=== PATIENT | male | born 1940 | race Caucasian/White ===

== ENCOUNTER 2019-01-02 01:57 | Inpatient (IN) | payer MEDICARE, MEDICAID ==
[~2019-01-02] VITALS: Ht 185.4 cm; Wt 117.3 kg
[~2019-01-02 01:57] MED LIST: BENA20TA54 PO; DOCU-193 PO; FEBU40TA PO; FLAX100029 PO; FURO40TA6 PO; LORA-247 PO; LOVA20TA2 PO; METF500T17 PO; MORP60CA17 PO; POTA10TA11 PO; TAMS0.4C2 PO; [UNRECOGNIZED DRUG - CODE] PO
--- NOTE | 2019-01-02 02:15 | NUR ---
[place] [facility], TRANSFER FROM [facility] FOR ELEVATED TROPS. PT WAS TAKEN TO [facility] FOR AN OVERDOSE ON MORPHINE. WHEN HE WAS PICKED UP HIS GCS WAS 3. NARCAN GIVEN AND PT WAS GCS 15. PT TAKEN TO [facility] AND TROPS FOUND TO BE ELEVATED. PT STATES THAT HE HAS NEVER ATTEMPTED SUICIDE IN THE PAST, THIS IS HIS FIRST ATTEMPT. PT STATES HE IS NOT LONGER FEELING SUICIDAL, BUT PT HAS A VERY DEPRESSED AFFECT. PT IN SECURED ROOM, FREQUENT CHECKS BY THIS RN.
[2019-01-02 02:24] LABS: MEAN CORPUSCULAR HEMOGLOBIN 31.9 pg (27.5-34.5); MEAN CORPUSCULAR HGB CONC 32.8 g/dL (33.2-36.2); MEAN CORPUSCULAR VOLUME 97.2 fL (81-97); MEAN PLATELET VOLUME 7.6 fL (7.4-10.4); PLATELET COUNT 313 x10^3/uL (130-400); RED BLOOD COUNT 4.47 x10^6/uL (4.38-5.82); RED CELL DISTRIBUTION WIDTH 14.1 % (9.4-14.8)
[2019-01-02] MEDS ORDERED: NALOXONE 0.4 MG/ML, 1ML IVPush ONE (02:30)
[2019-01-02] MEDS ORDERED: FAMOTIDINE 20 MG/2 ML IVPush ONE (02:30)
[2019-01-02] MEDS ORDERED: methylPREDNISolone SOD SUCC 125 MG/2 ML IVPush ONE ×2 (02:30→10:00)
[2019-01-02 02:38] LABS: ALANINE AMINOTRANSFERASE 30 U/L (12-78); ALBUMIN 3.3 g/dL (3.4-5.0); ANION GAP 10 mmol/L (5-15); CALCIUM 7.3 mg/dL (8.5-10.1); CHLORIDE 108 mmol/L (98-107); CREATININE 2.28 mg/dL (0.7-1.3); SALICYLATE LEVEL < 1.7 mg/dL (2.8-20.0)
[2019-01-02 02:43] LABS: ALKALINE PHOSPHATASE 72 U/L (45-117); BILIRUBIN,TOTAL 0.5 mg/dL (0.2-1.0); TOTAL PROTEIN 7.3 g/dL (6.4-8.2)
[2019-01-02 02:45] LABS: TROPONIN I 0.758 ng/mL (0.000-0.045)
[2019-01-02 02:52] LABS: BASOPHILS % (AUTO) 0 % (0-1); EOSINOPHILS # (AUTO) 0.13 x10^3/uL (0-0.4); EOSINOPHILS % (AUTO) 1 % (1-7); LYMPHOCYTES # (AUTO) 0.56 x10^3/uL (1-3.4); LYMPHOCYTES % (AUTO) 4 % (22-44); MD SCAN; MONOCYTES # (AUTO) 0.05 x10^3/uL (0.2-0.8); MONOCYTES % (AUTO) 0 % (2-9); NEUTROPHILS % (AUTO) 95 % (42-75)
--- NOTE | 2019-01-02 02:57 | NUR ---
PT ATTACHED TO ALL MONITORS. PROVIDED URINAL FOR URINE SAMPLE.
[2019-01-02] MEDS ORDERED: PLEASE ENTER HEIGHT AND WEIGHT MC SCH (03:00)
[2019-01-02] MEDS ORDERED: POTA20TA37 PO (03:10)
[2019-01-02] MEDS ORDERED: METO25TA35 PO (03:10)
[2019-01-02] MEDS ORDERED: FURO80TA77 PO (03:10)
--- NOTE | 2019-01-02 03:36 | NUR ---
REPORT GIVEN TO JIM GILMORE
[2019-01-02] MEDS ORDERED: ONDANSETRON 2MG/ML, 2ML IVPush PRN (04:00)
[2019-01-02] MEDS ORDERED: NALOXONE 0.4 MG/ML, 1ML IVPush PRN (04:30)
[2019-01-02] MEDS ORDERED: SODIUM CHLORIDE 0.9% 1,000 ML IV SCH (04:30)
[2019-01-02 04:44] LABS: HEMOGLOBIN A1C 6.1 % (4.2-6.3)
[2019-01-02] MEDS: INSULIN LISPRO 100 UNITS/ML, PEN SQ-INSULIN SCH ×4 (08:08→21:14)
[2019-01-02 08:59] VITALS: BP 111/50
[2019-01-02] MEDS: LORATADINE 10 MG TABLET PO SCH (09:50)
[2019-01-02 11:27] LABS: TROPONIN I 0.934 ng/mL (0.000-0.045)
[2019-01-02 12:57] VITALS: BP 115/62
[2019-01-02] MEDS: SODIUM CHLORIDE 0.9% 1,000 ML IV SCH ×2 (13:07→21:55)
[2019-01-02 13:13] VITALS: BP 109/64
[2019-01-02 16:26] LABS: TROPONIN I 0.844 ng/mL (0.000-0.045)
[2019-01-02 19:18] VITALS: BP 127/62
[2019-01-02 19:42] LABS: MICROSCOPIC AUTO
[2019-01-02 19:43] LABS: CULTURE INDICATED? NO
[2019-01-02 19:54] LABS: AMPHETAMINE SCREEN, URINE Negative (Negative); BARBITURATE SCREEN, URINE Negative (Negative); BENZODIAZEPINE SCREEN, URINE Negative (Negative); CANNABINOID SCREEN, URINE Negative (Negative); COCAINE SCREEN, URINE Negative (Negative); METHADONE SCREEN, URINE Negative (Negative); OPIATE SCREEN, URINE Positive (Negative)
[2019-01-03 01:45] VITALS: BP 116/53
[2019-01-03 05:27] LABS: MEAN CORPUSCULAR HEMOGLOBIN 32.2 pg (27.5-34.5); MEAN CORPUSCULAR HGB CONC 32.6 g/dL (33.2-36.2); MEAN CORPUSCULAR VOLUME 98.7 fL (81-97); MEAN PLATELET VOLUME 7.6 fL (7.4-10.4); PLATELET COUNT 316 x10^3/uL (130-400); RED BLOOD COUNT 3.85 x10^6/uL (4.38-5.82); RED CELL DISTRIBUTION WIDTH 14.4 % (9.4-14.8)
[2019-01-03 05:30] LABS: ANION GAP 10 mmol/L (5-15); CALCIUM 7.7 mg/dL (8.5-10.1); CHLORIDE 106 mmol/L (98-107)
[2019-01-03 06:01] LABS: BASOPHILS # (AUTO) 0.03 x10^3/uL (0-0.1); BASOPHILS % (AUTO) 0 % (0-1); EOSINOPHILS # (AUTO) 0.17 x10^3/uL (0-0.4); EOSINOPHILS % (AUTO) 1 % (1-7); LYMPHOCYTES # (AUTO) 0.86 x10^3/uL (1-3.4); LYMPHOCYTES % (AUTO) 5 % (22-44); MD SCAN; MONOCYTES # (AUTO) 0.65 x10^3/uL (0.2-0.8); MONOCYTES % (AUTO) 3 % (2-9); NEUTROPHILS # (AUTO) 17.57 x10^3/uL (1.8-6.8); NEUTROPHILS % (AUTO) 91 % (42-75)
[2019-01-03 06:35] VITALS: BP 126/66
[2019-01-03] MEDS: INSULIN LISPRO 100 UNITS/ML, PEN SQ-INSULIN SCH ×4 (07:00→20:52)
[2019-01-03] MEDS: SODIUM CHLORIDE 0.9% 1,000 ML IV SCH ×2 (08:24→19:00)
[2019-01-03] MEDS: LORATADINE 10 MG TABLET PO SCH (08:24)
[2019-01-03 15:07] VITALS: BP 126/65
[2019-01-03 18:46] VITALS: BP 118/56
[2019-01-03 22:27] LABS: SODIUM,URINE RANDOM < 5 mmol/L
[2019-01-04 01:35] VITALS: BP 144/67
[2019-01-04] MEDS ORDERED: prednisOLONE 15 MG/5 ML ORAL SOLN PO ONE (03:00)
[2019-01-04] MEDS: SODIUM CHLORIDE 0.9% 1,000 ML IV SCH ×2 (04:34→15:27)
[2019-01-04 06:15] LABS: BASOPHILS # (AUTO) 0.02 x10^3/uL (0-0.1); BASOPHILS % (AUTO) 0 % (0-1); EOSINOPHILS # (AUTO) 0.02 x10^3/uL (0-0.4); EOSINOPHILS % (AUTO) 0 % (1-7); LYMPHOCYTES # (AUTO) 1.01 x10^3/uL (1-3.4); LYMPHOCYTES % (AUTO) 10 % (22-44); MD NO; MEAN CORPUSCULAR HEMOGLOBIN 31.9 pg (27.5-34.5); MEAN CORPUSCULAR HGB CONC 32.9 g/dL (33.2-36.2); MEAN CORPUSCULAR VOLUME 97.1 fL (81-97); MEAN PLATELET VOLUME 7.3 fL (7.4-10.4); MONOCYTES # (AUTO) 0.07 x10^3/uL (0.2-0.8); MONOCYTES % (AUTO) 1 % (2-9); NEUTROPHILS # (AUTO) 8.93 x10^3/uL (1.8-6.8); NEUTROPHILS % (AUTO) 89 % (42-75); PLATELET COUNT 290 x10^3/uL (130-400); RED BLOOD COUNT 3.76 x10^6/uL (4.38-5.82); RED CELL DISTRIBUTION WIDTH 14.1 % (9.4-14.8)
[2019-01-04 06:28] LABS: ANION GAP 9 mmol/L (5-15); CALCIUM 7.8 mg/dL (8.5-10.1); CHLORIDE 107 mmol/L (98-107); CREATININE 1.83 mg/dL (0.7-1.3)
[2019-01-04] MEDS: INSULIN LISPRO 100 UNITS/ML, PEN SQ-INSULIN SCH ×4 (07:00→20:39)
[2019-01-04 09:54] VITALS: BP 158/69
[2019-01-04] MEDS: LORATADINE 10 MG TABLET PO SCH (11:00)
[2019-01-04 14:01] VITALS: BP 140/65
[2019-01-04 19:33] VITALS: BP 116/59
[2019-01-05 00:26] VITALS: BP 126/60
[2019-01-05] MEDS: SODIUM CHLORIDE 0.9% 1,000 ML IV SCH ×2 (03:06→13:23)
[2019-01-05] MEDS: INSULIN LISPRO 100 UNITS/ML, PEN SQ-INSULIN SCH ×3 (07:00→16:00)
[2019-01-05] MEDS: LORATADINE 10 MG TABLET PO SCH (08:02)
[2019-01-05 09:04] VITALS: BP 165/71
[2019-01-05 13:20] VITALS: BP 176/72
[2019-01-05] MEDS ORDERED: hydrALAzine 20 MG/ML, 1ML IV PRN (18:00)
[2019-01-05] MEDS ORDERED: AMLODIPINE 5 MG TABLET PO SCH (18:00)
[2019-01-05 20:30] VITALS: BP 189/77
[2019-01-06 00:54] VITALS: BP 178/73
[2019-01-06 08:33] VITALS: BP 173/80
[2019-01-06] MEDS ORDERED: AMLODIPINE 10 MG TAB ONE (09:00)
[2019-01-06] MEDS ORDERED: AMLODIPINE 10 MG TAB PO SCH (09:00)
[2019-01-06] MEDS ORDERED: DIPHENHYDRAMINE 25 MG CAPSULE ONE (09:07)
[2019-01-06] MEDS: LORATADINE 10 MG TABLET PO SCH (09:09)
[2019-01-06 09:10] LABS: BASOPHILS # (AUTO) 0.02 x10^3/uL (0-0.1); BASOPHILS % (AUTO) 0 % (0-1); EOSINOPHILS # (AUTO) 0.27 x10^3/uL (0-0.4); EOSINOPHILS % (AUTO) 3 % (1-7); LYMPHOCYTES % (AUTO) 17 % (22-44); MD NO; MEAN CORPUSCULAR HEMOGLOBIN 31.3 pg (27.5-34.5); MEAN CORPUSCULAR HGB CONC 32.7 g/dL (33.2-36.2); MEAN CORPUSCULAR VOLUME 95.7 fL (81-97); MEAN PLATELET VOLUME 7.4 fL (7.4-10.4); MONOCYTES # (AUTO) 0.16 x10^3/uL (0.2-0.8); MONOCYTES % (AUTO) 2 % (2-9); NEUTROPHILS # (AUTO) 8.41 x10^3/uL (1.8-6.8); NEUTROPHILS % (AUTO) 79 % (42-75); PLATELET COUNT 281 x10^3/uL (130-400); RED BLOOD COUNT 3.99 x10^6/uL (4.38-5.82); RED CELL DISTRIBUTION WIDTH 14.2 % (9.4-14.8)
[2019-01-06 09:17] LABS: ANION GAP 9 mmol/L (5-15); CALCIUM 8.1 mg/dL (8.5-10.1); CHLORIDE 116 mmol/L (98-107); CREATININE 1.44 mg/dL (0.7-1.3)
[2019-01-06] MEDS ORDERED: DIPHENHYDRAMINE 25 MG CAPSULE PO PRN (09:30)
[2019-01-06] MEDS ORDERED: AMLO10TA8 PO (10:56)
[2019-01-06] MEDS ORDERED: BISACODYL 10 MG SUPP ONE (13:02)
[2019-01-06] MEDS ORDERED: BISACODYL 10 MG SUPP PR PRN (13:30)
[2019-01-09] MEDS ORDERED: LIDO700A20 TD (17:39)
[2019-01-09] MEDS ORDERED: SERT50TA28 PO (17:39)
== END 2019-01-06 14:23 | DRG 917 ==
LOC: ED 02:26 → EDIP 03:10 → 4WST 03:53
PROVIDERS: ADMIT Internal Medicine; ATTEND Family Medicine
DX: T40.2X2A Poisoning by other opioids, intentional self-harm, initial encounter (principal); I21.4 Non-ST elevation (NSTEMI) myocardial infarction; J96.01 Acute respiratory failure with hypoxia; E66.2 Morbid (severe) obesity with alveolar hypoventilation; F33.2 Major depressive disorder, recurrent severe without psychotic features; I50.32 Chronic diastolic (congestive) heart failure; N17.9 Acute kidney failure, unspecified; E11.9 Type 2 diabetes mellitus without complications; Z68.34 Body mass index [BMI] 34.0-34.9, adult; G89.29 Other chronic pain; H91.90 Unspecified hearing loss, unspecified ear; I11.0 Hypertensive heart disease with heart failure; L50.9 Urticaria, unspecified; M54.9 Dorsalgia, unspecified; N40.1 Benign prostatic hyperplasia with lower urinary tract symptoms; R33.8 Other retention of urine; R63.3 Feeding difficulties; Z79.84 Long term (current) use of oral hypoglycemic drugs; Z79.899 Other long term (current) drug therapy; Z85.51 Personal history of malignant neoplasm of bladder; Z86.73 Personal history of transient ischemic attack (TIA), and cerebral infarction without residual deficits; Z88.5 Allergy status to narcotic agent; Z90.10 Acquired absence of unspecified breast and nipple; Z88.1 Allergy status to other antibiotic agents; Z88.0 Allergy status to penicillin; Z88.8 Allergy status to other drugs, medicaments and biological substances; Y92.038 Other place in apartment as the place of occurrence of the external cause
CPT/HCPCS: 36415; 71045; 76770; 80048; 80053; 80061; 80307; 81001; 82550; 82570; 82962; 83036; 84145; 84300; 84484; 85025; 93005; 93306; 99285; G0378; 92523-GN; J1815; J2930; J7030; Q0163

== ENCOUNTER → 2019-02-14 | Outpatient (CLI) | payer MEDICARE, MEDICAID ==
[~2019-02-14] MED LIST changes: +AMLO10TA8 PO; +FURO80TA3 PO; +FURO80TA77 PO; +LIDO700A20 TD; +METO25TA35 PO; +METO25TA91 PO; +POTA20TA37 PO; +POTA20TA89 PO; +PSYL0.4C2 PO; +SERT50TA28 PO; +TRIAMCINOLONE TP
== END | disposition home or self-care (01) ==
LOC: STAR 13:50
PROVIDERS: ATTEND Urology
DX: Z01.818 Encounter for other preprocedural examination (principal); N40.1 Benign prostatic hyperplasia with lower urinary tract symptoms
CPT/HCPCS: 93005

== ENCOUNTER 2019-02-25 08:22 | Inpatient (IN) | payer MEDICARE, MEDICAID ==
[~2019-02-25] VITALS: Ht 182.9 cm; Wt 102.9 kg
[2019-02-25] MEDS ORDERED: ACETAMINOPHEN 500 MG TABLET PO ONE (09:30)
[2019-02-25] MEDS ORDERED: LACTATED RINGERS 1,000 ML IV SCH (09:30)
[2019-02-25] MEDS ORDERED: GABAPENTIN 300 MG CAPSULE PO ONE (09:30)
[2019-02-25] MEDS ORDERED: hydrALAzine 20 MG/ML, 1ML IV PRN (11:00)
[2019-02-25] MEDS ORDERED: LABETALOL 5MG/ML, 20ML IV PRN (11:00)
[2019-02-25] MEDS ORDERED: PROMETHAZINE 25 MG/ML, 1ML IV PRN (11:00)
[2019-02-25] MEDS ORDERED: MEPERIDINE/PF 25MG/ML,1ML IVPush PRN (11:00)
[2019-02-25] MEDS ORDERED: HYDROmorphone 2 MG/ML, 1ML IVPush PRN (11:00)
[2019-02-25] MEDS ORDERED: FENTANYL PF 100 MCG/2ML IV PRN (11:00)
[2019-02-25] MEDS ORDERED: HALOPERIDOL 5 MG/ML IV PRN (11:00)
[2019-02-25] MEDS ORDERED: OXYcodone 5 MG/5 ML ORAL.SOL UDC PO PRN (11:00)
[2019-02-25] MEDS ORDERED: FENTANYL PF 250 MCG/5ML ONE (11:02)
[2019-02-25] MEDS ORDERED: EPHEDRINE 50 MG/ML, 1ML ONE (11:26)
[2019-02-25] MEDS ORDERED: PROPOFOL 10 MG/ML, 20ML ONE (12:29)
[2019-02-25] MEDS ORDERED: CEFAZOLIN 1,000 MG ONE (12:29)
[2019-02-25] MEDS ORDERED: DEXAMETHASONE 4 MG/ML, 1ML ONE (12:29)
[2019-02-25] MEDS ORDERED: ONDANSETRON 2MG/ML, 2ML ONE (12:29)
[2019-02-25] MEDS ORDERED: NEOSTIGMINE 1 MG/ML, 10ML ONE (12:29)
[2019-02-25] MEDS ORDERED: GLYCOPYRROLATE 0.2MG/1ML, 5ML ONE (12:29)
[2019-02-25] MEDS ORDERED: ROCURONIUM 10MG/ML,5ML ONE (12:29)
[2019-02-25] MEDS ORDERED: SUCCINYLCHOLINE 20 MG/ML, 10ML ONE (12:29)
[2019-02-25 14:00] VITALS: BP 120/70
[2019-02-25] MEDS ORDERED: ONDANSETRON 2MG/ML, 2ML IV PRN (15:00)
[2019-02-25] MEDS ORDERED: OPIUM/BELLADONNA SUPP.RECT 16.2-30 MG PR PRN (15:00)
[2019-02-25] MEDS ORDERED: HYDROmorphone 1 MG/ML, 1ML INJ IV PRN (15:30)
[2019-02-25 19:41] VITALS: BP 112/63
[2019-02-25] MEDS: FUROSEMIDE 80 MG TABLET PO SCH (19:43)
[2019-02-25] MEDS: metFORMIN 500 MG TABLET PO SCH (19:43)
[2019-02-25] MEDS ORDERED: LOVASTATIN 20 MG TABLET PO SCH (21:00)
[2019-02-25] MEDS: CIPROFLOXACIN 500 MG TABLET PO SCH (21:05)
[2019-02-25] MEDS: DOCUSATE 100 MG CAPSULE PO SCH (21:05)
[2019-02-25] MEDS: LACTATED RINGERS 1,000 ML IV SCH (21:07)
[2019-02-25] MEDS: ACETAMINOPHEN 325 MG TABLET PO PRN (21:16)
[2019-02-26 00:02] VITALS: BP 126/70
[2019-02-26] MEDS: FUROSEMIDE 80 MG TABLET PO SCH (06:05)
[2019-02-26] MEDS: LACTATED RINGERS 1,000 ML IV SCH (06:07)
[2019-02-26] MEDS: DOCUSATE 100 MG CAPSULE PO SCH (08:12)
[2019-02-26] MEDS: CIPROFLOXACIN 500 MG TABLET PO SCH (08:12)
[2019-02-26] MEDS: ACETAMINOPHEN 325 MG TABLET PO PRN (08:13)
[2019-02-26] MEDS: metFORMIN 500 MG TABLET PO SCH (08:13)
[2019-02-26] MEDS ORDERED: METOPROLOL SUCCINATE 25 MG TAB.ER.24H PO SCH (09:00)
[2019-02-26] MEDS ORDERED: FEBUXOSTAT 40 MG TABLET PO SCH (09:00)
[2019-02-26] MEDS ORDERED: POTASSIUM CHLORIDE 20 MEQ TAB.ER.PRT PO SCH (09:00)
[2019-02-26 09:56] VITALS: BP 114/68
[2019-02-26 12:47] VITALS: BP 109/60
[2019-02-26 13:49] VITALS: BP 125/70
== END 2019-02-26 16:27 | disposition home or self-care (01) | DRG 713 ==
LOC: OUT 08:22 → 4NE 13:46 → OUT 13:54 → DCLOUNGE 02-26 16:12
PROVIDERS: ADMIT Urology; ATTEND Urology
PROC: 0V508ZZ Destruction of Prostate, Via Natural or Artificial Opening Endoscopic (ICD-10-PCS; principal; 2019-02-25 11:00)
DX: N40.1 Benign prostatic hyperplasia with lower urinary tract symptoms (principal); N13.8 Other obstructive and reflux uropathy; N30.90 Cystitis, unspecified without hematuria; R33.8 Other retention of urine; E11.9 Type 2 diabetes mellitus without complications; E78.5 Hyperlipidemia, unspecified; I10 Essential (primary) hypertension; F32.9 Major depressive disorder, single episode, unspecified; G89.29 Other chronic pain; Z85.51 Personal history of malignant neoplasm of bladder; I25.2 Old myocardial infarction; Z86.73 Personal history of transient ischemic attack (TIA), and cerebral infarction without residual deficits; Z90.79 Acquired absence of other genital organ(s)
CPT/HCPCS: 82962; 88305; G0378; J0690; J1100; J2405; J2704; J2710; J3010; J0330; J7120

== ENCOUNTER 2019-05-03 13:16 | Outpatient (CLI) | payer MEDICARE, MEDICAID ==
[2019-05-03] MEDS ORDERED: FURO80TA3 PO (14:13)
[2019-05-03] MEDS ORDERED: PSYL0.5215 PO (14:13)
[2019-05-13] MEDS ORDERED: TIZA2TAB2 PO (08:42)
[2019-05-13] MEDS ORDERED: METH4TAB2 PO (08:42)
[2019-05-13] MEDS ORDERED: ACET325T26 PO (08:42)
== END 2019-05-03 23:59 | disposition home or self-care (01) ==
LOC: STAR 13:16
PROVIDERS: ATTEND Neurological Surgery
DX: Z02.9 Encounter for administrative examinations, unspecified (principal)